=== PATIENT | male | born 1970 | race Two or more races ===

== ENCOUNTER 2022-04-18 20:35 | Emergency (ER) | payer OTHER ==
[2022-04-18 20:51] VITALS: BP 158/93; PULSE 98; TEMP 97.9; BMI 25.7
[2022-04-18] MEDS ORDERED: CYCLOBENZAPRINE HCL 10 MG TABLET (FP) PO ONE (21:37)
[2022-04-18] MEDS ORDERED: KETOROLAC TROMETHAMINE 30 MG/1 ML VIAL IM ONE (21:37)
[2022-04-18] MEDS ORDERED: LIDOCAINE 5% TOPICAL PATCH TP ONE (21:37)
[2022-04-18] MEDS ORDERED: ACETAMINOPHEN 500 MG TABLET (FP) PO ONE (21:37)
[2022-04-18] MEDS ORDERED: ACETAMINOPHEN 500 MG TABLET (FP) ONE (21:57)
[2022-04-18] MEDS ORDERED: CYCLOBENZAPRINE HCL 10 MG TABLET (FP) ONE (21:57)
[2022-04-18] MEDS ORDERED: LIDOCAINE 5% TOPICAL PATCH ONE (21:57)
[2022-04-18] MEDS ORDERED: KETOROLAC TROMETHAMINE 30 MG/1 ML VIAL ONE (21:57)
[2022-04-18] MEDS ORDERED: LIDOCAINE PATCH REMOVAL MC ONE (22:00)
== END 2022-04-19 00:06 | disposition home or self-care (01) ==
LOC: JER 20:35
PROC: 3E0233Z Introduction of Anti-inflammatory into Muscle, Percutaneous Approach (ICD-10-PCS; principal; 2022-04-18)
DX: M54.2 Cervicalgia (principal); M54.50 Low back pain, unspecified; V89.2XXA Person injured in unspecified motor-vehicle accident, traffic, initial encounter
CPT/HCPCS: 72100-TC-FY; 72125-TC; 99284-25

== ENCOUNTER 2025-02-08 20:37 | Emergency (ER) | payer OTHER ==
[2025-02-08 20:48] VITALS: BP 145/90; PULSE 92; RESP 16; TEMP 97.8; BMI 25.7
[2025-02-08] MEDS ORDERED: IBUPROFEN 600 MG TABLET (FP) PO ONE (23:15)
[2025-02-08] MEDS ORDERED: METHOCARBAMOL 500 MG TABLET ONE (23:16)
[2025-02-08] MEDS: METHOCARBAMOL 500 MG TABLET PO ONE (23:17)
[2025-02-08] MEDS: IBUPROFEN 600 MG TABLET (FP) PO ONE (23:17)
== END 2025-02-09 00:05 | disposition home or self-care (01) ==
LOC: JERFT 20:37
DX: S16.1XXA Strain of muscle, fascia and tendon at neck level, initial encounter (principal); S39.012A Strain of muscle, fascia and tendon of lower back, initial encounter; V49.40XA Driver injured in collision with unspecified motor vehicles in traffic accident, initial encounter; Y92.410 Unspecified street and highway as the place of occurrence of the external cause
CPT/HCPCS: 72125-TC; 99284-25